=== PATIENT | male | born 1965 | race Caucasian/White ===

== ENCOUNTER 2018-01-09 11:54 | Emergency (ER) | payer OTHER ==
[~2018-01-09] VITALS: Ht 172.7 cm; Wt 139.7 kg
[~2018-01-09 11:54] MED LIST: KEFLEX500 MG PO; LEXAPRO 10 MG T10 M2 PO; PERCOCET 5-3251 EACH PO; PROTONIX40 M2 PO; TESTIM5 GM TOP; ZESTORETIC 20-1 EAC3 PO
[2018-01-09 12:13] LABS: ABSOLUTE NEUTROPHILS 7.8 thou/uL (1.4-8.2); BASOPHILS 0.8 % (0.0-2.0); EOSINOPHILS 0.9 % (0.0-3.0); HEMOGLOBIN 15.6 gm/dL (14.0-18.0); MCH 30.6 pg (26.0-34.0); MCHC 34.7 g/dL (28.0-37.0); MCV 88.1 fL (80.0-100.0); MONOCYTES 5.8 % (1.0-8.0); PLATELET COUNT 244 thou/uL (150-400); POLYS 77.5 % (36.0-66.0); RDW 13.9 % (10.5-14.5)
[2018-01-09 12:23] LABS: CALCIUM 9.2 mg/dL (8.5-10.1); CREATININE 1.1 mg/dL (0.7-1.3)
[2018-01-09 12:23] LABS: URINE BILIRUBIN NEGATIVE (Negative); URINE BLOOD NEGATIVE (Negative); URINE CLARITY CLEAR; URINE COLOR YELLOW; URINE GLUCOSE-RANDOM* NEGATIVE (Negative); URINE KETONES NEGATIVE (Negative); URINE LEUKOCYTES NEGATIVE (Negative); URINE NITRITE NEGATIVE (Negative); URINE PROTEIN (DIPSTICK) NEGATIVE (Negative); URINE SPECIFIC GRAVITY >= 1.030 (1.005-1.035); URINE UROBILINOGEN 0.2 E.U./dl (0.2-1.0)
[2018-01-09 12:36] LABS: DIRECT BILIRUBIN 0.1 mg/dL (<0.1-0.3); TOTAL BILIRUBIN 0.6 mg/dL (<0.1-1.0); TOTAL PROTEIN 7.8 g/dL (6.4-8.2)
[2018-01-09 17:15] LABS: CSF GLUCOSE 52 mg/dL (40-70)
[2018-01-09 17:17] LABS: CSF CLARITY CLEAR; CSF COLOR COLORLESS; VOLUME 12 ml
[2018-01-09 17:19] LABS: CSF WBC 2 /mm3 (0-10)
[2018-01-09 17:22] LABS: CSF RBC 12 /mm3
[2018-01-09] MEDS ORDERED: ULTRAM 50MG TAB50 MG PO (17:58)
[2018-01-09] MEDS ORDERED: TIZANIDINE HCL4 MG PO (17:58)
[2018-01-09] MEDS ORDERED: IBUPROFEN 600600 M1 PO (17:58)
[2018-01-09 18:14] VITALS: BP 150/80
== END 2018-01-09 18:16 | disposition home or self-care (01) ==
LOC: ER 11:54
PROVIDERS: Nurse Practitioner
DX: R51 Headache (principal); M54.2 Cervicalgia; R11.2 Nausea with vomiting, unspecified; I10 Essential (primary) hypertension; Z88.8 Allergy status to other drugs, medicaments and biological substances